=== PATIENT | female | born 1985 | race Two or more races ===

== ENCOUNTER 2023-08-23 12:55 | Outpatient (REF) | payer BC, SELFPAY ==
--- NOTE | ~2023-08-23 | MR_ITS ---
EXAMINATION: MR BRAIN WITHOUT CONTRAST CLINICAL INFORMATION: Encephalopathy COMPARISON: None. TECHNIQUE: MRI of the brain was obtained using routine sequences without contrast. FINDINGS: There is no reduced diffusion to suggest acute infarct. Susceptibility weighted sequence is within normal limits. No mass effect, extra-axial collection, midline shift, or other herniation. The ventricles and sulci are normal in size and configuration. Few punctate T2/FLAIR hyperintense foci are nonspecific. Intracranial flow voids are preserved. Scattered polypoid mucosal thickening in the paranasal sinuses. The mastoid air cells are well-aerated. No focal expansile or destructive osseous lesion. MR/MR head/brain wo con IMPRESSION: No acute infarction or mass effect. Few punctate T2/FLAIR hyperintense foci are nonspecific and may be seen in the setting of chronic migraines or early chronic microvascular ischemic change.
== END 2023-08-23 12:56 | disposition home or self-care (01) ==
LOC: HO.MRI 12:55
PROVIDERS: PCP Internal Medicine; Visit Provider Psychiatry & Neurology Neurology
DX: G93.40 Encephalopathy, unspecified (principal)
CPT/HCPCS: 70551

== ENCOUNTER 2023-09-27 08:01 | Outpatient (REF) | payer BC, SELFPAY ==
--- NOTE | 2023-09-27 08:05 | EEG_ITS ---
This is a 16-channel EEG with an EKG lead. The patient is reported awake and asleep during the tracing. Background EEG rhythm is low amplitude fast during initial part of the tracing and slower later. The patient transitioned into drowsiness and light sleep with no significant abnormality. Photic stimulation does not produce any significant abnormality. Hyperventilation is unremarkable. Cardiac lead does not reveal any significant abnormality. No definite sharp wave spikes or paroxysmal tendency noted. IMPRESSION: Unremarkable EEG. MD ISRRAEL Chavez/MILLI / [id number]
== END 2023-09-27 08:02 | disposition home or self-care (01) ==
LOC: HO.NEURO 08:01
PROVIDERS: PCP Internal Medicine; Visit Provider Psychiatry & Neurology Neurology
DX: G93.40 Encephalopathy, unspecified (principal)
CPT/HCPCS: 95816